=== PATIENT | female | born 1985 | race Caucasian/White ===

== ENCOUNTER 2022-09-21 09:29 | Outpatient (CLI) | payer OTHER, SELFPAY ==
--- NOTE | ~2022-09-21 | US_ITS ---
EXAMINATION: US OB <=14 wk fetus w TV DATE: 09/21/2022 10:24 INDICATION: Establish dating and viability of during first trimester TECHNIQUE: Real-time pelvic ultrasound utilizing both a transvaginal and transabdominal probe was pe rformed. The interpreting radiologist was not present for the study. COMPARISON: None. FINDINGS: The uterus measures 11.2 x 7.1 x 8.2 cm. There is an intrauterine gestational sac. A yolk sac and fe fany pole are identified. The crown rump length measures 2.2 cm, which correlates with an estimated ge stational age of 8 weeks and 6 days. heart motion is identified measuring 168 beats per minute (bpm) by M-mode Doppler. The right ovary measures 3.9 x 2.3 x 3.3 cm. 2.2 cm anechoic likely corpus luteum cyst in the right o vary. The left ovary measures 3.2 x 1.5 x 1.1 cm. There is minimal anechoic free fluid along the righ t ovary. IMPRESSION: 1. Single living fetus with heart rate of 160 bpm. 2. Gestational age by ultrasound of 8 weeks 6 day(s) +/- 6 day(s) with ultrasound estimated date of delivery (LINDA) of 04/27/2023. Reviewed, dictated and finalized at location A. T RELATIONS AGENT IMPRESSION: 1. Single living fetus with heart rate of 160 bpm. 2. Gestational age by ultrasound of 8 weeks 6 day(s) +/- 6 day(s) with ultraso und estimated date of delivery (LINDA) of 04/27/2023.
== END 2022-09-21 09:30 | disposition home or self-care (01) ==
LOC: ANHIMG 09:31
PROVIDERS: PCP Internal Medicine; Visit Provider Student in an Organized Health Care Education/Training Program
DX: Z34.90 Encounter for supervision of normal pregnancy, unspecified, unspecified trimester (principal); Z3A.00 Weeks of gestation of pregnancy not specified
CPT/HCPCS: 76801; 76817

== ENCOUNTER 2023-03-21 08:59 | Outpatient (CLI) | payer OTHER, SELFPAY ==
[2023-03-21 09:31] VITALS: BP 119/61; PULSE 63
[2023-03-21 09:39] LABS: Basophils Percent Auto 0.3 % (0.2-1.2); Eosinophils Absolute Auto 0.1 K/mm3 (0-0.3); Eosinophils Percent Auto 1.1 % (0-4.4); Hematocrit 34.7 % (37.0-47.0); Hemoglobin 11.6 g/dL (12.0-15.0); Immature Granulocyte Absolute 0.06 K/mm3 (0.00-0.031); Immature Granulocyte Percent A 0.6 % (0-0.5); Lymphocytes Absolute Auto 1.35 K/mm3 (0.9-3.2); Lymphocytes Percent Auto 14.3 % (18.3-44.2); Mean Corpuscular HGB Conc 33.4 g/dl (32-36); Mean Corpuscular Hemoglobin 31.8 pg (26-34); Mean Corpuscular Volume 95.1 fl (80-100); Mean Platelet Volume 10.1 fl (7.4-10.4); Monocytes Absolute Auto 0.6 K/mm3 (0.1-0.6); Monocytes Percent Auto 5.8 % (2.6-8.5); Neutrophils Absolute Auto 7.4 K/mm3 (1.3-6.7); Neutrophils Percent Auto 77.9 % (45.5-73.1); Platelet Count Result 196 k/mm3 (150-375); Red Blood Count 3.65 M/mm3 (4.2-5.4); Red Cell Distribution Width 13.5 % (11.5-14.5); White Blood Count 9.5 K/mm3 (4.5-10.0)
[2023-03-21 09:41] LABS: Appearance Urine Clear (Clear); Bilirubin Urine Negative (Negative); Blood Urine Negative (Negative); Color Urine Yellow (Yellow); Glucose Urine UA Negative (Negative); Ketones Urine Negative (Negative); Leukocyte Esterase Ur Negative LEU/UL (NEGATIVE); Nitrate Urine Negative (Negative); Protein Urine Negative (Negative); Specific Grav Ur 1.007 (1.001-1.035); Urobilinogen Urine 0.2 mg/dL (<2.0); pH Urine 7.5 (5.0-9.0)
[2023-03-21 09:43] LABS: Creatinine Urine 45.8 mg/dL; Total Protein Urine Random 11 mg/dL; Ur Ttl Prot Creatinine Ratio 0.24 mg/mg (0-0.20)
[2023-03-21 09:46] VITALS: BP 112/64; PULSE 64
[2023-03-21 09:49] LABS: Alanine Aminotransferase 15 U/L (6-35); Albumin Level 3.8 g/dL (3.5-5.1); Alkaline Phosphatase 85 U/L (38-126); Anion Gap 6 mmol/L (8-16); Aspartate Amino Transferase 18 U/L (14-36); Bilirubin,Total 0.8 mg/dL (0.2-1.3); Blood Urea Nitrogen 6 mg/dL (7-17); Calcium 8.2 mg/dL (8.4-10.2); Carbon Dioxide 23 mmol/L (22-30); Chloride 107 mmol/L (98-107); Estimated Glomerular Filt Rate > 60; Glucose 84 mg/dL (65-110); Potassium 3.6 mmol/L (3.4-5.0); Sodium 136 mmol/L (137-145); Uric Acid 3.6 mg/dL (2.5-7.5)
[2023-03-21 09:58] LABS: Add Urine Microscopic? NO
--- NOTE | 2023-03-21 10:12 | PC.NURSE ---
Dr. Suárez updated on pt labs and vs. tracing reviewed. Order received for 24hour urine outpatient.
[2023-03-21 10:24] VITALS: BP 119/61; PULSE 66
== END 2023-03-21 10:21 | disposition home or self-care (01) ==
LOC: ANHOBOP 09:05 → ANHOBPP 09:05
PROVIDERS: PCP Internal Medicine; Visit Provider Obstetrics & Gynecology
DX: O13.9 Gestational [pregnancy-induced] hypertension without significant proteinuria, unspecified trimester (principal); Z3A.00 Weeks of gestation of pregnancy not specified
CPT/HCPCS: 36415; 59025; 80053; 81003; 82570; 84156; 84550; 85025; 87086; 99199

== ENCOUNTER 2023-03-22 10:46 | Outpatient (NON) | payer OTHER, SELFPAY ==
[2023-03-22 12:21] LABS: Collection Time Urine 24 HOURS
[2023-03-22 12:49] LABS: Specific Gravity Ur 1.012; Total Volume 24 Hour Urine 4000 ml
[2023-03-22 12:52] LABS: Patient Weight 262 Lbs
[2023-03-22 12:55] LABS: Creatinine Clearance Urine 185.3 ml/min (75-125); Creatinine Urine 41.2 mg/dL; Total Protein Urine Random 19 mg/dL
[2023-03-22 13:12] LABS: Total Protein Urine 24 Hr 760 mg/24hr (28-141)
== END 2023-03-22 10:47 | disposition home or self-care (01) ==
LOC: ANHOBOP 10:57
PROVIDERS: PCP Internal Medicine; Visit Provider Obstetrics & Gynecology
DX: Z34.90 Encounter for supervision of normal pregnancy, unspecified, unspecified trimester (principal); Z3A.00 Weeks of gestation of pregnancy not specified
CPT/HCPCS: 81050; 82575; 84156

== ENCOUNTER 2023-03-22 17:00 | Outpatient (CLI) | payer OTHER, SELFPAY ==
[2023-03-22 17:25] VITALS: BP 121/66; PULSE 67
[2023-03-22 17:31] VITALS: BP 109/65; PULSE 66
[2023-03-22 17:46] VITALS: BP 109/66; PULSE 71
[2023-03-22 17:58] VITALS: BP 109/66; PULSE 67
== END 2023-03-22 18:00 | disposition home or self-care (01) ==
LOC: ANHOBOP 17:04 → ANHOBPP 17:06
PROVIDERS: PCP Internal Medicine; Visit Provider Obstetrics & Gynecology
DX: O13.9 Gestational [pregnancy-induced] hypertension without significant proteinuria, unspecified trimester (principal); Z3A.00 Weeks of gestation of pregnancy not specified
CPT/HCPCS: 59025; 87086; 99199

== ENCOUNTER 2023-03-31 13:37 | Outpatient (CLI) | payer OTHER, SELFPAY ==
--- NOTE | ~2023-03-31 | US_ITS ---
EXAMINATION: US OB limited w BPP DATE: 03/31/2023 15:28 CDT INDICATION: Preeclampsia. Evaluate amniotic fluid index. TECHNIQUE: Real-time transabdominal obstetric ultrasound. FINDINGS: Ultrasound dated 09/21/2022 There is a single living fetus in vertex presentation. The placenta is anterior without placenta pre via. cardiac activity and movement is noted with a heart rate of 120 beats per minute. A FI is normal measuring 12.5 cm (normal gestational age is 7.7-24.9 cm). Biophysical profile: breathin of 2 movement: 2 of 2 tone: 2 of 2 Amniotic flud pocket: 2 of 2 Total score: 8 of 8 IMPRESSION: 1. Single living intrauterine in vertex presentation. 2: Total biophysical profile score of 8/8. Reviewed, dictated and finalized at location L.
[2023-03-31 14:09] VITALS: BP 122/68; PULSE 75
[2023-03-31 14:16] VITALS: BP 125/74; PULSE 74
[2023-03-31 14:29] LABS: Basophils Percent Auto 0.2 % (0.2-1.2); Eosinophils Absolute Auto 0.1 K/mm3 (0-0.3); Eosinophils Percent Auto 0.8 % (0-4.4); Hematocrit 33.1 % (37.0-47.0); Hemoglobin 11.3 g/dL (12.0-15.0); Immature Granulocyte Absolute 0.04 K/mm3 (0.00-0.031); Immature Granulocyte Percent A 0.5 % (0-0.5); Lymphocytes Absolute Auto 1.29 K/mm3 (0.9-3.2); Lymphocytes Percent Auto 15.2 % (18.3-44.2); Mean Corpuscular HGB Conc 34.1 g/dl (32-36); Mean Corpuscular Hemoglobin 31.9 pg (26-34); Mean Corpuscular Volume 93.5 fl (80-100); Mean Platelet Volume 10.1 fl (7.4-10.4); Monocytes Absolute Auto 0.4 K/mm3 (0.1-0.6); Monocytes Percent Auto 4.5 % (2.6-8.5); Neutrophils Absolute Auto 6.7 K/mm3 (1.3-6.7); Neutrophils Percent Auto 78.8 % (45.5-73.1); Platelet Count Result 188 k/mm3 (150-375); Red Blood Count 3.54 M/mm3 (4.2-5.4); Red Cell Distribution Width 13.5 % (11.5-14.5); White Blood Count 8.5 K/mm3 (4.5-10.0)
[2023-03-31 14:32] LABS: Appearance Urine Clear (Clear); Bilirubin Urine Negative (Negative); Blood Urine Negative (Negative); Color Urine Yellow (Yellow); Glucose Urine UA Negative (Negative); Ketones Urine 1+ mg/dL (Negative); Leukocyte Esterase Ur Negative LEU/UL (NEGATIVE); Nitrate Urine Negative (Negative); Protein Urine Negative (Negative); Specific Grav Ur 1.014 (1.001-1.035); Urobilinogen Urine 0.2 mg/dL (<2.0)
[2023-03-31 14:38] LABS: Creatinine Urine 94.3 mg/dL; Total Protein Urine Random 13 mg/dL; Ur Ttl Prot Creatinine Ratio 0.14 mg/mg (0-0.20)
[2023-03-31 14:40] LABS: Add Urine Microscopic? NO; Alanine Aminotransferase 19 U/L (6-35); Albumin Level 3.5 g/dL (3.5-5.1); Alkaline Phosphatase 81 U/L (38-126); Anion Gap 7 mmol/L (8-16); Aspartate Amino Transferase 19 U/L (14-36); Bilirubin,Total 0.9 mg/dL (0.2-1.3); Blood Urea Nitrogen 5 mg/dL (7-17); Calcium 8.8 mg/dL (8.4-10.2); Carbon Dioxide 23 mmol/L (22-30); Chloride 107 mmol/L (98-107); Estimated Glomerular Filt Rate > 60; Glucose 145 mg/dL (65-110); Potassium 3.3 mmol/L (3.4-5.0); Sodium 137 mmol/L (137-145); Uric Acid 3.7 mg/dL (2.5-7.5)
[2023-03-31 15:20] VITALS: BP 125/74; PULSE 75
== END 2023-03-31 15:30 | disposition home or self-care (01) ==
LOC: ANHOBOP 13:40 → ANHOBPP 13:41
PROVIDERS: PCP Internal Medicine; Visit Provider Obstetrics & Gynecology
DX: O13.9 Gestational [pregnancy-induced] hypertension without significant proteinuria, unspecified trimester (principal); Z3A.00 Weeks of gestation of pregnancy not specified
CPT/HCPCS: 36415; 59025; 76815; 76819; 80053; 81003; 82570; 84156; 84550; 85025; 87086; 99199

== ENCOUNTER 2023-04-22 13:35 | Outpatient (RCR) | payer OTHER, SELFPAY ==
[2023-04-04 08:09] VITALS: BP 124/79
[2023-04-07 16:26] VITALS: BP 117/79; PULSE 71
[2023-04-11 13:55] VITALS: BP 116/65; PULSE 73
[2023-04-14 17:45] VITALS: BP 122/72; PULSE 75
[2023-04-18 15:01] VITALS: BP 111/79; PULSE 71
--- NOTE | ~2023-04-22 | US_ITS ---
EXAMINATION: US OB limited DATE: 04/14/2023 17:32 INDICATION: Assess amniotic fluid index during third trimester TECHNIQUE: Real-time ultrasound of the pelvis was performed. The interpreting radiologist was not pre sent for the study. COMPARISON: None. FINDINGS: There is a single living fetus in vertex presentation. This obscures the region of the cervix. The pl acenta is anterior. heart rate is 158 beats per minute (bpm). The amniotic fluid index is 11.1 cm, which is normal (5th%-95%: 7.3-23.9 cm at 38 weeks estimated gestational age). IMPRESSION: 1. Single living fetus in vertex presentation with heart rate of 158 bpm. 2. Normal amniotic fluid index of 11.1 cm. Reviewed, dictated and finalized at location A. IMPRESSION: 1. Single living fetus in vertex presentation with heart rate of 158 bpm . 2. Normal amniotic fluid index of 11.1 cm.
--- NOTE | ~2023-04-22 | US_ITS ---
EXAMINATION: US OB limited DATE: 04/18/2023 15:07 INDICATION: Amniotic fluid index assessment, advanced maternal age TECHNIQUE: Real-time ultrasound of the pelvis was performed. The interpreting radiologist was not pre sent for the study. COMPARISON: 04/14/2023 FINDINGS: There is a single living fetus in vertex presentation. The placenta is anterior. card iac activity and movement are noted. heart rate is 120 beats per minute (bpm). The amniot ic fluid index is 8.2 cm which is normal (normal range: 7.3 cm to 23.9 cm). IMPRESSION: 1. Single living fetus in vertex presentation. 2. Normal amniotic fluid index. Reviewed, dictated and finalized at location F.
--- NOTE | ~2023-04-22 | US_ITS ---
EXAMINATION: US OB limited DATE: 04/22/2023 14:46 INDICATION: Advanced maternal age. Third trimester. TECHNIQUE: Real-time ultrasound of the pelvis was performed. COMPARISON: Ultrasound 04/18/2023 FINDINGS: There is a single fetus in vertex presentation. The placenta is anterior. heart rate is 150 be ats per minute (bpm). The amniotic fluid index is 8.3 cm, which is normal. IMPRESSION: 1. Single living fetus in vertex presentation. 2. Normal amniotic fluid index. Reviewed, dictated and finalized at location A.
--- NOTE | ~2023-04-22 | US_ITS ---
US OB limited 04/04/2023 08:33 Indication: Elevated blood pressure. Evaluate RASHID. Procedure: High-resolution obstetrical ultrasound utilizing transabdominal technique Comparison: No prior studies for comparison. Findings: There is a single living intrauterine in vertex presentation. heart rate is 129 BPM. Placenta is anterior without previa. RASHID measures 9 cm (normal range for gestational age is 7.7-24.9 cm). Impression: 1: No living intrauterine in vertex presentation. 2: Normal RASHID measures 9 cm. Reviewed, dictated and finalized at location B. Impression: 1: No living intrauterine in vertex presentation. 2: Normal RASHID measures 9 cm.
--- NOTE | ~2023-04-22 | US_ITS ---
EXAMINATION: US OB limited DATE: 04/07/2023 16:21 INDICATION: Amniotic fluid index. Third trimester. TECHNIQUE: Real-time ultrasound of the pelvis was performed. COMPARISON: Ultrasound 04/04/2023 FINDINGS: There is a single fetus in vertex presentation. The placenta is anterior. heart rate is 154 be ats per minute (bpm). The amniotic fluid index is 9.8 cm, which is normal. IMPRESSION: 1. Single living fetus in vertex presentation. 2. Normal amniotic fluid index. Reviewed, dictated and finalized at location E.
[2023-04-22 13:52] VITALS: BP 121/67; PULSE 80
== END 2023-06-27 13:09 | disposition home or self-care (01) ==
LOC: ANHOBOP 13:35
PROVIDERS: PCP Internal Medicine; Visit Provider Obstetrics & Gynecology
DX: O09.513 Supervision of elderly primigravida, third trimester (principal); O26.893 Other specified pregnancy related conditions, third trimester; R03.0 Elevated blood-pressure reading, without diagnosis of hypertension; Z3A.36 36 weeks gestation of pregnancy
CPT/HCPCS: 59025; 76815

== ENCOUNTER 2023-04-25 16:10 | Inpatient (IN) | payer OTHER, SELFPAY ==
[2023-04-25] VITALS (17 sets, daily range): BP systolic 111–142; BP diastolic 61–88; PULSE 68–83; TEMP 36.8; BMI 49.1
[2023-04-25 16:58] LABS: Basophils Percent Auto 0.3 % (0.2-1.2); Eosinophils Absolute Auto 0.1 K/mm3 (0-0.3); Eosinophils Percent Auto 0.8 % (0-4.4); Hematocrit 33.2 % (37.0-47.0); Hemoglobin 11.4 g/dL (12.0-15.0); Immature Granulocyte Absolute 0.04 K/mm3 (0.00-0.031); Immature Granulocyte Percent A 0.4 % (0-0.5); Lymphocytes Absolute Auto 1.22 K/mm3 (0.9-3.2); Lymphocytes Percent Auto 13.4 % (18.3-44.2); Mean Corpuscular HGB Conc 34.3 g/dl (32-36); Mean Corpuscular Hemoglobin 31.7 pg (26-34); Mean Corpuscular Volume 92.2 fl (80-100); Mean Platelet Volume 10.4 fl (7.4-10.4); Monocytes Absolute Auto 0.5 K/mm3 (0.1-0.6); Monocytes Percent Auto 4.9 % (2.6-8.5); Neutrophils Absolute Auto 7.3 K/mm3 (1.3-6.7); Neutrophils Percent Auto 80.2 % (45.5-73.1); Platelet Count Result 191 k/mm3 (150-375); White Blood Count 9.1 K/mm3 (4.5-10.0)
--- NOTE | 2023-04-25 17:13 | LDADM ---
This patient, Sarita Arambula, was admitted to Labor/Delivery/Recovery 104 on 04/25/23 at 16:10. Plans for labor, pain management and were discussed with patient. Patient/family oriented to hospital policies and general routines including ID bracelet, bed and alarms, visiting hours, pain management, procedures, bathroom and other care routines, personal items, smoking policy, room service/diet and guest tray routines, infant security routines, and visiting hours. Patient/Family are encouraged to report perceived risks to care and to ask questions if they do not understand what they are told or what they should do. See OBIX for further documentation.
[2023-04-25] MEDS: DINOPROSTONE 10 MG VAG INSERT VAGINAL (17:33)
--- NOTE | 2023-04-25 17:43 | WPDANESEPP ---
Anes - Eval Pre Procedure Procedure: Labor epidural Date/Time: 04/25/23 17:43 Surgeon: Jose Armando Preop Diagnosis: Abdominal pain with contractions Pre Op Diagnosis: IOL Patient Data Age: 37 Gender: F Height: 1.57 m Weight: 122 kg Last Vital Signs O2 Del Method Room Air 04/25/23 17:12 Allergies Allergy/AdvReac Type Severity Reaction Status Date / Time Cephalosporins Allergy Intermediate RASH Verified 04/18/23 13:07 Penicillins Allergy Intermediate RASH Verified 04/18/23 13:07 adhesive tape AdvReac Redness of Verified 04/18/23 13:07 Skin Home Medications Medication Instructions Recorded Confirmed Type cholecalciferol (vitamin D3) 125 125 mcg PO DAILY 10/07/20 04/12/23 History mcg (5,000 unit) capsule levothyroxine 50 mcg tablet 75 mcg PO DAILY 10/07/20 04/12/23 History vitamin B complex (B 1 tablet PO DAILY 08/20/21 04/12/23 History Complex-Vitamin B12 tablet) prenat.vits,miriam,rnz-lvll-wuwdi 1 tablet PO DAILY 09/14/22 04/12/23 History docusate sodium 100 mg capsule 100 mg PO DAILY 10/12/22 04/12/23 History (Colace) miscellaneous medical supply #1 ea 03/21/23 04/12/23 Rx (Blood Pressure Cuff) Laboratory Tests 04/25/23 16:48 WBC 9.1 K/mm3 (4.5-10.0) RBC 3.60 L M/mm3 (4.2-5.4) Hgb 11.4 L g/dL (12.0-15.0) Hct 33.2 L % (37.0-47.0) MCV 92.2 fl (80-100) MCH 31.7 pg (26-34) MCHC 34.3 g/dl (32-36) RDW 13.0 % (11.5-14.5) Plt Count 191 k/mm3 (150-375) MPV 10.4 fl (7.4-10.4) Immature Gran % (Auto) 0.4 % (0-0.5) Neut % (Auto) 80.2 H % (45.5-73.1) Lymph % (Auto) 13.4 L % (18.3-44.2) [place] % (Auto) 4.9 % (2.6-8.5) Eos % (Auto) 0.8 % (0-4.4) Baso % (Auto) 0.3 % (0.2-1.2) Lymph # (Auto) 1.22 K/mm3 (0.9-3.2) [place] # (Auto) 0.5 K/mm3 (0.1-0.6) Eos # (Auto) 0.1 K/mm3 (0-0.3) Baso # (Auto) 0.0 K/mm3 (0.0-0.1) Abs Immat Gran (auto) 0.04 H K/mm3 (0.00-0.031) Absolute Neuts (auto) 7.3 H K/mm3 (1.3-6.7) Absolute Nucleated RBC 0.0 K/mm3 (0.0-0.012) Nucleated RBC % 0.0 % (0.0-0.2) RPR Pending : gestational age HCG: positive Patient hx anesthesia problems: none Family hx anesthesia problems: none Results Review: All pre-operative results and documents have been reviewed as part of the pre-operative evaluation. [facility] Past Medical History Medical History Acid reflux Bipolar disorder History of miscarriage x 1 Hypothyroidism Migraine Morbid obesity and not yet delivered Surgical History Surgical History History of tonsillectomy and adenoidectomy Family History Family History Father Diabetes mellitus Acute myocardial infarction Hypertension Hyperlipidemia Mother Uterine prolapse Social History Social History Smoking status: Never smoker Second hand tobacco smoke exposure: No Alcohol intake: current Substance use: never Lack of Transportation: No Lack of Food: Never True Current Housing: I Have Housing Concerned About Future Housing: No Difficulty Paying Gas/Electric Bills: No Difficulty Paying for Meds: No Currently Unemployed: No Education: Master's Degree or Higher Difficulty w/ Childcare or Family Care: No Spiritual care concerns: No Exam Day of Procedure 04/25/23 17:43 Patient weight: morbidly obese Airway: Mallampati scale class III
[2023-04-26] VITALS (78 sets, daily range): BP systolic 78–151; BP diastolic 39–106; PULSE 63–135; RESP 16; TEMP 36.4–36.8; O2SAT 97–100
[2023-04-26] MEDS: miSOPROStol 25 MCG TABLET PO (05:49)
[2023-04-26 06:43] LABS: Rapid Plasma Reagin Non-Reactive (NonReactive)
[2023-04-26] MEDS: OXYTOCIN 30 UNITS/NS 500 ML 30 UNITS/500 ML BAG IV CONT (09:52)
[2023-04-26] MEDS: LACTATED RINGERS 1,000 ML 125 ML IV CONT ×3 (09:53→22:06)
--- NOTE | 2023-04-26 22:07 | PM.IMHP ---
H&P: HPI History of Present Illness Date/Time: 04/26/23 22:07 Chief Complaint: Medical induction of labor Narrative: Sheis a 37 y/o at 39 5/7 by edc of 04/27/23 established by 8 week ultrasound. She was admitted for MIL. 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 No elevated blood pressures. She has been getting surveillance testing which has been reassuring. EFW has been within normal range. Review of Systems Review of Systems: All systems reviewed & are unremarkable except as noted in HPI and below Constitutional: Constitutional: Reports no additional constitutional complaints and Denies headache(s) Eyes: Eyes: Denies spots in vision ENT: Reports system reviewed and no additional complaints, except as documented and Denies headache(s) Cardiovascular: Cardiovascular: Denies chest pain and Denies dyspnea Respiratory: Respiratory: Denies dyspnea Gastrointestinal: Gastrointestinal: Reports no additional gastrointestinal complaints Genitourinary: Genitourinary: Reports amenorrhea Musculoskeletal: Musculoskeletal: Reports no additional musculoskeletal complaints Integumentary/Breasts: Skin/Breast: Denies breast mass and Denies rash Neurologic: Denies headache(s) Psychiatric: Psychiatric: Reports no additional psychiatric complaints PMFSH Past Medical History Medical History Acid reflux Bipolar disorder History of miscarriage x 1 Hypothyroidism Migraine Morbid obesity and not yet delivered Surgical History Surgical History History of tonsillectomy and adenoidectomy Family History Family History Father Diabetes mellitus Acute myocardial infarction Hypertension Hyperlipidemia Mother Uterine prolapse Social History Social History Smoking status: Never smoker Second hand tobacco smoke exposure: No Alcohol intake: current Substance use: never Lack of Transportation: No Lack of Food: Never True Current Housing: I Have Housing Concerned About Future Housing: No Difficulty Paying Gas/Electric Bills: No Difficulty Paying for Meds: No Currently Unemployed: No Education: Master's Degree or Higher Difficulty w/ Childcare or Family Care: No Spiritual care concerns: No Meds Home Medications and Allergies Home Medications Medication Instructions Recorded Confirmed Type cholecalciferol (vitamin D3) 125 125 mcg PO DAILY 10/07/20 04/26/23 History mcg (5,000 unit) capsule levothyroxine 50 mcg tablet 75 mcg PO DAILY 10/07/20 04/26/23 History vitamin B complex (B 1 tablet PO DAILY 08/20/21 04/26/23 History Complex-Vitamin B12 tablet) prenat.vits,miriam,hon-nddp-[id number] 1 tablet PO DAILY 09/14/22 04/26/23 History docusate sodium 100 mg capsule 100 mg PO DAILY 10/12/22 04/26/23 History (Colace) Allergies Allergy/AdvReac Type Severity Reaction Status Date / Time Cephalosporins Allergy Intermediate RASH Verified 04/18/23 13:07 Penicillins Allergy Intermediate RASH Verified 04/18/23 13:07 adhesive tape AdvReac Redness of Verified 04/18/23 13:07 Skin Vital Signs Vital Signs - 24 hr 04/25/23 23:01 04/25/23 23:31 04/26/23 00:01 Temperature Pulse Rate 75 73 67 Blood Pressure 118/64 111/61 145/79 H Pulse Oximetry 04/26/23 00:31 04/26/23 00:00 04/26/23 01:01 Temperature 97.9 F Pulse Rate 65 70 Blood Pressure 134/75 135/75 Pulse Oximetry 04/26/23 01:31 04/26/23 02:01 04/26/23 02:31 Temperature Pulse Rate 70 63 69 Blood Pressure 119/82 134/81 136/80 Pulse Oximetry 04/26/23 03:01 04/26/23 03:31 04/26/23 04:01 Temperature Pulse Rate 81 63 68 Blood Pressure 129/87 133/79 133/83
--- NOTE | 2023-04-26 22:22 | PM.OBPNVD ---
OB - PN: Subj Subjective Date/time seen: 04/26/23 22:22 Interval history: Cat 1, 115, cervix 2/50/-3, AROM, no fluid obtained, continue Pitocin. OB - PN: Obj Data Labs 04/25/23 16:48 Labs: Laboratory Results - last 24 hr 04/25/23 16:48 RPR Non-reactive OB - PN A/P Time Spent With Patient Time: Total time spent is greater than 50% in coordination of care (as documented) at patient's floor/unit and/or counseling patient:
--- NOTE | 2023-04-26 22:24 | PM.OBPNVD ---
OB - PN: Subj Subjective Date/time seen: 04/26/23 0845 Interval history: Cat 1, 115, cervix 2/50/-3, AROM 0840 no fluid obtained, continue Pitocin. OB - PN: Obj Data Labs 04/25/23 16:48 Labs: Laboratory Results - last 24 hr 04/25/23 16:48 RPR Non-reactive OB - PN A/P Time Spent With Patient Time: Total time spent is greater than 50% in coordination of care (as documented) at patient's floor/unit and/or counseling patient:
--- NOTE | 2023-04-26 22:25 | PM.OBPNVD ---
OB - PN: Subj Subjective Date/time seen: 04/26/23 1330. Interval history: Cat 1, 135, no leaking prior to exam, cervix 3/60/-3, attempted AROM 1330, and clear fluid noted, wilil use that as rupture of membranes time. Continue Pitocin. OB - PN: Obj Data Labs 04/25/23 16:48 Labs: Laboratory Results - last 24 hr 04/25/23 16:48 RPR Non-reactive OB - PN A/P Time Spent With Patient Time: Total time spent is greater than 50% in coordination of care (as documented) at patient's floor/unit and/or counseling patient:
--- NOTE | 2023-04-26 22:29 | PM.OBPNVD ---
OB - PN: Subj Subjective Date/time seen: 04/26/23 22:29 Interval history: Cat 1, 130, cervix 360/-3, continue pitocin. She is considering epidural. OB - PN: Obj Data Labs 04/25/23 16:48 Labs: Laboratory Results - last 24 hr 04/25/23 16:48 RPR Non-reactive OB - PN A/P Time Spent With Patient Time: Total time spent is greater than 50% in coordination of care (as documented) at patient's floor/unit and/or counseling patient:
[2023-04-27] VITALS (58 sets, daily range): BP systolic 103–143; BP diastolic 63–102; PULSE 78–139; RESP 20; TEMP 37.1–37.6; O2SAT 99–100
[2023-04-27] MEDS: IBUPROFEN 600 MG TABLET PO (19:25)
--- NOTE | 2023-04-27 21:00 | PC.NURSE ---
Patient viewed the discharge video Mother & Baby Care, The First Two Weeks . Patient was given the opportunity and encouraged to ask questions. Patient verbalized understanding of information shared and has been given the mother/baby guide for home reference.
[2023-04-27] MEDS: ACETAMINOPHEN 325 MG TABLET 650 MG PO (22:58)
[2023-04-28] MEDS: IBUPROFEN 600 MG TABLET PO ×3 (01:40→17:53)
[2023-04-28 04:35] VITALS: BP 108/65; PULSE 76; RESP 18; TEMP 36.6
[2023-04-28] MEDS: ACETAMINOPHEN 325 MG TABLET 650 MG PO ×3 (04:37→22:12)
[2023-04-28 05:31] LABS: Hematocrit 30.1 % (37.0-47.0); Hemoglobin 10.2 g/dL (12.0-15.0)
--- NOTE | 2023-04-28 06:40 | OP_ITS ---
DATE OF PROCEDURE: 04/27/2023 TYPE OF DELIVERY: Spontaneous vaginal delivery. DESCRIPTION OF PROCEDURE: The patient is a G2, P0, was admitted for medical induction of labor at 39 and 5/7th weeks. course significant for hypothyroidism, advanced maternal age. BMI greater than 40. She was admitted on the and had Cervidil in the evening. The morning of April 26, she had assisted rupture of membranes, but no fluid leakage, and then at 1 p.m. later, the bag was palpated, and she did not have any leaking of fluid prior to that, and the assisted rupture of membranes was attempted then, and clear fluid was noted, so that would be the time of rupture, at approximately 1330 hours. She continued on Pitocin. She had slow progress to active labor. The morning of April 27, she was 8 cm, and the position was 0 station. She was continued on Pitocin. At 18 hours after rupture, she was started on vancomycin due to the 18 prolonged rupture of membranes. The highest temperature she had during labor was 100.2. This did go down. She dilated to complete and pushed for approximately an hour and a half, and delivered a female at 11:02 on April 27, Apgars 6 and 9. There was a tight nuchal cord at the time of delivery, which was surgically reduced. She had modified Dawn leg position, and the anterior shoulder was then delivered, and the rest of the infant was delivered. Infant was crying and placed on maternal abdomen. The cord blood and cord gases were obtained. The placenta delivered spontaneously and intact. She sustained a second-degree midline laceration, repaired with 3-0 Vicryl. EBL, 200 mL. The weight of the female infant was 7 pounds 4 ounces. D I MT: Eliza
[2023-04-28] MEDS: LEVOTHYROXINE SODIUM 75 MCG TABLET PO (06:47)
--- NOTE | 2023-04-28 07:42 | PM.OBPNVD ---
OB - PN: Subj Subjective Date/time seen: 04/28/23 07:42 Interval history: Cat 1, 130, cervix 3/60/-3, continue pitocin. She is considering epidural. Patient comments: no complaints, pain well controlled and tolerating diet feeding status: exclusively breast feeding Narrative: patient doing well this AM. No complaints. Pain is well controlled. She reports minimal bleeding. She is ambulating and voiding without difficulty. She is tolerating PO. She denies N/V, fever, chills. OB - PN: Obj Data Labs 04/28/23 04:36 Labs: Laboratory Results - last 24 hr 04/28/23 04:36 Hgb 10.2 L Hct 30.1 L OB - PN A/P Plan day: 1 Plan: routine care Comments: patient doing well H/H 10. VSS reports minimal bleeding continue routine care Time Spent With Patient Time: Total time spent is greater than 50% in coordination of care (as documented) at patient's floor/unit and/or counseling patient: Time with patient: less than 15 minutes Review of Systems Review of Systems: All systems reviewed & are unremarkable except as noted in HPI and below Exam Const: General: comfortable and no acute distress Resp: Effort & Inspection: normal respiratory effort Cardio: Rate: regular rate GI: GI Palp: Yes Soft to palpation and No Tenderness to palpation present (GI) Auscultation: normal bowel sounds Other: fundus firm and below umbilicus. Psych: Affect: normal affect
[2023-04-28 08:00] VITALS: BP 126/76; PULSE 84; RESP 16; TEMP 36.4; O2SAT 99
[2023-04-28] MEDS: MULTIVIT/MIN/PREN/FOL AC/IRON TABLET 1 TAB PO (09:44)
--- NOTE | 2023-04-28 12:18 | PC.NURSE ---
Paper documentation exists on this patient due to [facility] downtime on 04/27/23 from [id number].
--- NOTE | 2023-04-28 13:33 | WPDANLDPN2 ---
Anes-Prog Note L&D Date/Time: 04/28/23 13:33 Neuro status: Neuro function grossly intact. Vital Signs: Last Vital Signs Temp 36.4 C 04/28/23 08:00 Pulse 84 04/28/23 08:00 Resp 16 04/28/23 08:00 BP 126/76 04/28/23 08:00 Pulse Ox 99 04/28/23 08:00 O2 Del Method Room Air 04/25/23 17:12 Pain score (VAS): 0 I/O: Intake & Output 04/27/23 04/28/23 04/28/23 23:59 07:59 15:59 Intake Total 240 Balance 240 Patient feedback: Patient satisfied with anesthetic care.
--- NOTE | 2023-04-28 13:48 | PC.NURSE ---
[id number] Purposefully rounded to assess needs. Mother is in the shower and father of baby will call after mother is comfortable, [id number] with her infant since feeding cues are present at this time. [id number] Parents requested assistance with latching their . Mother states that there was an attempt independently to latch infant earlier and infant would open wide to latch, then hold the breast into her mouth not understanding what to do. Infant is [id number] with mother and feeding cues were visualized after stimulating infant for wakefulness. There is an attempt with a big open mouth, however; is not able to effectively breastfeed and slides off of the breast. Mother has edema in her areola, however; it is better today. meets the outcomes for weight, output and jaundice at this time, however the TCB is 8.6 @21 hours and has not voided in life. is unable to effectively latch or maintain, so we discussed the different feeding options and there is no medical reason to supplement at this time. Time was spent with efforts to latch with the nipple shield and it was unsuccessful. Mother desires to pump and see if she can supplement with breast milk. [id number] Breast pump provided due to ineffective at this time. Instructions given on cleaning, care, usage, that there should be no pain, pumping schedule for milk production, collection, and storage of human milk. Parents are encouraged to record pumping schedule on the feeding sheet. Patient was assessed for correct placement, flange size, to pump for comfort and nipple stretching/stimulation for adequate milk production every 3 hours (8 times in 24 hours) 1-2 times at night. Mother voiced understanding of the education shared along with mom and baby guide for additional resource information. After the pumping session was spoon fed the almost 1/4 tsp of colostrum. Parents were given education to make an inform decision and they are choosing to supplement with formula at this time. Demonstrated paced bottle feeding with parents and 10mls was given to infant. Parents voiced understanding of the practicing of , when to call for assistance if there's pain with a latch or infant will not wake to breastfeed. Pumping and/or hand express to protect the milk supply. Feeding the the expressed breast milk, then supplementing with formula using paced bottle feeding. Primary RN is updated with progress.
--- NOTE | 2023-04-28 22:00 | PC.NURSE ---
Patient instructed to view the discharge video Mother & Baby Care, The First Two Weeks online. Patient was given the opportunity and encouraged to ask questions. Patient verbalized understanding of information shared and has been given the mother/baby guide for home reference.
[2023-04-28 22:10] VITALS: BP 133/81; PULSE 89; RESP 20; TEMP 36.7
[2023-04-28] MEDS: WITCH HAZEL 40 PADS 1 PAD TOPICAL (22:13)
[2023-04-29] MEDS: IBUPROFEN 600 MG TABLET PO (05:20)
[2023-04-29] MEDS: LEVOTHYROXINE SODIUM 75 MCG TABLET PO (06:51)
[2023-04-29 08:40] VITALS: BP 113/86; PULSE 76; RESP 16; TEMP 37.1; O2SAT 99
[2023-04-29] MEDS: MULTIVIT/MIN/PREN/FOL AC/IRON TABLET 1 TAB PO (09:13)
[2023-04-29] MEDS: ACETAMINOPHEN 325 MG TABLET 650 MG PO (09:13)
--- NOTE | 2023-04-29 10:05 | PM.OBDSVD ---
DS: Admitting Diagnosis Discharge Date 04/29/23 Admitting Diagnosis intrauterine at term maternal hypothyroidism OB - DS: Summary OB Procedures : None OB Procedures Intrapartum: Spontaneous Vag Delivery OB Procedures: : None Status at Discharge Functional status at discharge: independent ambulation Overall status at discharge: patient is back to baseline Time Spent with Patient Time attestation: Total time spent providing and/or coordinating discharge services: Time spent: Less than 30 minutes Exam Const: General: comfortable and no acute distress Resp: Effort & Inspection: normal respiratory effort Auscultation: clear to auscultation bilaterally Cardio: Rate: regular rate GI: GI Palp: Yes Soft to palpation Auscultation: normal bowel sounds Other: Fundus firm below umbilicus Psych: Appearance: grossly normal Mental Status: mental status grossly normal Affect: normal affect Discharge Plan Discharge Attending physician on discharge: Jay Jay Suárez Discharging Clinician: Pa Cowart Patient Disposition: Home, Self-Care Activity: as tolerated and pelvic rest Diet: regular Patient Instructions: Antibiotic Form, Vaginal Delivery (DC) Stand Alone Forms: General Discharge Information Follow-up/Referrals: Jay Jay Suárez MD [Physician] - Discharge Medications: New acetaminophen 500 mg tablet 500 mg PO Q6H PRN (Reason: pain) Qty: 30 0RF ibuprofen 600 mg tablet 600 mg PO Q6H PRN (Reason: pain) Qty: 30 0RF Continued levothyroxine 50 mcg tablet 75 mcg PO DAILY cholecalciferol (vitamin D3) 125 mcg (5,000 unit) capsule 125 mcg PO DAILY docusate sodium [Colace] 100 mg capsule 100 mg PO DAILY vitamin B complex [B Complex-Vitamin B12] Tablet 1 tablet PO DAILY prenat.vits,miriam,jjd-jaqm-esady Tablet 1 tablet PO DAILY Date of admission: 04/27/23 13:50 Primary Care Provider: Marco Walls Admitting Provider: Jay Jay Suárez Attending physician on admission: Jay Jay Suárez Condition: Stable
--- NOTE | 2023-04-29 12:19 | PC.NURSE ---
Addendum entered by Ngozi Moreland RN 04/29/23 12:26: Reviewed protecting the milk supply, expectations as it pertains to hypothyroidism and pumping at least 8 times in a 24 hour period with 1-2 times at night. Parents voiced understanding of education. Original Note: [id number] Purposefully rounded to assess needs. Parents will call for assistance when they are ready for a consult. [phone] Consulted with patient to assess needs related to . Reviewed working with infant, supporting breast and how to protect the nipples with an optimal deep latch, good positioning, and good hand washing. Mother demonstrates understanding of education for [id number], stimulating for wakefulness, positioning, alignment, supporting breast, and bringing to the breast. opens with big, open, wide gape, however; infant has difficulty latching effectively to nurse related to tongue sucking, shallow latching, and edema in mothers areola. The edema has decreased some but the nipples need more protractility. Nipple care reviewed with optimal latch, good positioning and using clean hands when feeding her infant and touching her breast. Mother plans to continue with attempting to breastfeed, pumping to stimulate the milk supply, and supplement to feed . Reminded parents to use good handwashing technique to prevent infection. Mother is feeding appropriately for growth of and understands stimulating infant to eat if needed. has had appropriate feedings in the last 24 hours meets the outcomes for weight, output and jaundice at this time. Mother states she is confident to continue to feed her at home, when to call for assistance and denies any additional assistance or education at this time. Reinforced understanding of milk production, transition of milk, signs of adequate intake, transition of stool, prevention/relief of engorgement, responsive watching for feeding cues, the different methods of stimulating to breastfeed 2-3 hours after the start of the last feeding, community resources, medication information reviewed per [employer] and when to call a provider using the resource of the mom and baby guide/[facility] website. Parents voiced understanding of the education shared.
[2023-04-30 08:38] VITALS: BP 132/89; PULSE 60; RESP 20; TEMP 36.9; O2SAT 100
== END 2023-04-29 13:10 | disposition home or self-care (01) | DRG 807 ==
LOC: ANHLDR 04-26 09:43 → ANHOB2 04-29 10:06 → ANHLDR 05-02 15:29 → ANHOB2 05-02 15:29
PROVIDERS: Admitting Provider Obstetrics & Gynecology; PCP Internal Medicine; Visit Provider Student in an Organized Health Care Education/Training Program
DX: O75.2 Pyrexia during labor, not elsewhere classified (principal); Z37.0 Single live birth; O99.284 Endocrine, nutritional and metabolic diseases complicating childbirth; O70.1 Second degree perineal laceration during delivery; O12.14 Gestational proteinuria, complicating childbirth; O99.214 Obesity complicating childbirth; E66.01 Morbid (severe) obesity due to excess calories; O69.1XX0 Labor and delivery complicated by cord around neck, with compression, not applicable or unspecified; Z3A.39 39 weeks gestation of pregnancy; O99.62 Diseases of the digestive system complicating childbirth; K21.9 Gastro-esophageal reflux disease without esophagitis; O42.92 Full-term premature rupture of membranes, unspecified as to length of time between rupture and onset of labor; Z14.1 Cystic fibrosis carrier; Z88.0 Allergy status to penicillin
CPT/HCPCS: 36415; 85014; 85018; 85025; 86592; 86850; 86900; 86901; 88307; A9270; J2590; J2795; J7120

== ENCOUNTER 2023-10-03 10:58 | Outpatient (CLI) | payer OTHER, SELFPAY ==
--- NOTE | ~2023-10-03 | XR_ITS ---
EXAMINATION: XR wrist LT min 3V DATE: 10/03/2023 11:14 INDICATION: Left wrist pain. TECHNIQUE: 4 views of left wrist were obtained. COMPARISON: None. FINDINGS: Bone alignment is normal. No fracture. Joint spaces are normal. IMPRESSION: 1. Normal left wrist. Reviewed, dictated and finalized at location E. LAY CARD WRITER IMPRESSION: 1. Normal left wrist.
== END 2023-10-03 10:59 | disposition home or self-care (01) ==
LOC: CHSIMG 10:59
PROVIDERS: PCP Internal Medicine; Visit Provider Internal Medicine
DX: M25.532 Pain in left wrist (principal)
CPT/HCPCS: 73110

== ENCOUNTER 2024-07-12 16:29 | Emergency (ER) | payer BC, SELFPAY ==
[2024-07-12 16:45] VITALS: BP 111/80; PULSE 70; RESP 16; TEMP 36.4; O2SAT 100
--- NOTE | 2024-07-12 16:49 | ED.URI ---
HPI - URI/Sore Throat General Chief Complaint: Upper Respiratory Infection Stated Complaint: COUGH Time Seen by Provider: 07/12/24 16:49 Source: patient Mode of arrival: ambulatory Limitations: no limitations History of Present Illness HPI Narrative: 39 yo F presents with c/o productive cough for 3 wks. Worse at night. Taking OTC meds to treat symptoms. Today while at gym felt SOB, cannot take deep breath. No SOB or CP at this time. Afebrile. All systems reviewed and negative except as noted above. Related Data Home Medications Medication Instructions Recorded Confirmed cholecalciferol (vitamin D3) 125 125 mcg PO DAILY 10/07/20 07/12/24 mcg (5,000 unit) capsule levothyroxine 50 mcg tablet 75 mcg PO DAILY 10/07/20 07/12/24 vitamin B complex (B 1 tablet PO DAILY 08/20/21 07/12/24 Complex-Vitamin B12 tablet) Allergies Allergy/AdvReac Type Severity Reaction Status Date / Time Cephalosporins Allergy Intermediate RASH Verified 07/12/24 16:52 Penicillins Allergy Intermediate RASH Verified 07/12/24 16:52 adhesive tape AdvReac Redness of Verified 07/12/24 16:52 Skin Review of Systems Review of Systems: CONSTITUTIONAL: Denies fever, chills, or sweats. EYES: Denies visual changes, redness, or discharge. ENT: Denies rhinorrhea, congestion, sore throat, or otalgia. CARDIOVASCULAR: Denies chest pain, palpitations, or edema. RESPIRATORY: reports cough and dyspnea with exertion. GASTROINTESTINAL: Denies abdominal pain, nausea, vomiting, or diarrhea. GENITOURINARY: Denies dysuria or hematuria. SKIN: Denies rash or itching. MUSCULOSKELETAL: Denies back pain, joint pain, or myalgia. NEUROLOGIC: Denies headache, numbness, or weakness. PSYCHIATRIC: Denies anxiety or depression. All other systems reviewed are negative, except as documented in HPI. [facility] Past Medical History Medical History Acid reflux Bipolar disorder History of miscarriage x 1 Hypothyroidism Migraine Morbid obesity and not yet delivered Surgical History Surgical History History of tonsillectomy and adenoidectomy Family History Family History Father Diabetes mellitus Acute myocardial infarction Hypertension Hyperlipidemia Mother Uterine prolapse Social History Social History Smoking status: Never smoker Second hand tobacco smoke exposure: No Alcohol intake: current Substance use: never Lack of Transportation: No Lack of Food: Never True Current Housing: I Have Housing Concerned About Future Housing: No Difficulty Paying Gas/Electric Bills: No Difficulty Paying for Meds: No Currently Unemployed: No Education: Master's Degree or Higher Difficulty w/ Childcare or Family Care: No Spiritual care concerns: No Comments At time of signature, agree with nursing past medical, surgical, social and family history. There is no relevant family history pertinent to the presenting complaint. Exam Narrative: GENERAL: This is a well-nourished, well-developed patient, in no apparent distress. HEAD: normocephalic, atraumatic. EYES: PERRL. Sclera clear/white. Vision is grossly intact. EARS: External ears normal, auditory canals clear and without drainage, TMs normal without perforation. Hearing grossly intact. NOSE: External nose normal with no obvious nasal discharge, nares without redness, no rhinorrhea. THROAT: Mucous membranes moist, clear postnasal drainage NECK: Neck supple, non-tender without lymphadenopathy, masses or thyromegaly. CARDIOVASCULAR: Regular rate and rhythm without murmurs, gallops, or rubs. RESPIRATORY: Clear to auscultation. Breath sounds equal bilaterally. No wheezes, rales, or rhonchi. SKIN: warm, Dry, intact with no suspicious lesions or rash, good texture and turgor. NE
== END 2024-07-12 17:05 | disposition home or self-care (01) ==
PROVIDERS: Emergency Provider Nurse Practitioner Family; PCP Internal Medicine
DX: J20.9 Acute bronchitis, unspecified (principal); K21.9 Gastro-esophageal reflux disease without esophagitis; E03.9 Hypothyroidism, unspecified; E66.01 Morbid (severe) obesity due to excess calories; Z68.41 Body mass index [BMI] 40.0-44.9, adult
CPT/HCPCS: 99213; G0463

== ENCOUNTER 2025-01-17 15:20 | Outpatient (CLI) | payer OTHER, SELFPAY ==
--- NOTE | ~2025-01-17 | US_ITS ---
EXAMINATION: US OB <=14 wk fetus w TV DATE: 01/17/2025 15:47 INDICATION: Encounter for supervision of normal during first trimester TECHNIQUE: Real-time pelvic ultrasound utilizing both a transvaginal and transabdominal probe was pe rformed. The interpreting radiologist was not present for the study. COMPARISON: None. FINDINGS: The uterus measures 9.2 x 6.9 x 6.7 cm. There is an intrauterine gestational sac. A yolk sac and fet al pole are identified. The crown rump length measures 2.7 cm, which correlates with an estimated ges tational age of 9 weeks and 4 days. heart motion is identified measuring 178 beats per minute ( bpm) by M-mode Doppler. The right ovary measures 3.3 x 2.2 x 2.2 cm. Vascular flow identified at the right ovary on color Dop pler. The left ovary is not visualized. There is no free fluid in the pelvis. IMPRESSION: 1. Single living fetus with heart rate of 178 bpm. 2. Gestational age by ultrasound of 9 weeks 4 day(s) +/- 6 day(s) with ultrasound estimated date of delivery (LINDA) of 08/18/2025. Reviewed, dictated and finalized at location L. ICE ADMITTING CLERK IMPRESSION: 1. Single living fetus with heart rate of 178 bpm. 2. Gestational age by ultrasound of 9 weeks 4 day(s) +/- 6 day(s) with ultraso und estimated date of delivery (LINDA) of 08/18/2025.
== END 2025-01-17 15:21 | disposition home or self-care (01) ==
LOC: GOSHIMG 15:20
PROVIDERS: PCP Student in an Organized Health Care Education/Training Program; Visit Provider Student in an Organized Health Care Education/Training Program
DX: Z34.91 Encounter for supervision of normal pregnancy, unspecified, first trimester (principal); Z3A.09 9 weeks gestation of pregnancy
CPT/HCPCS: 76801; 76817

== ENCOUNTER 2025-05-18 08:22 | Outpatient (CLI) | payer OTHER, SELFPAY ==
--- NOTE | ~2025-05-18 | US_ITS ---
Limited Abdominal Sonogram: Real-time sonographic imaging of the right upper quadrant was performed. Clinical History: Right upper quadrant pain Findings: The liver appears normal with no evidence of mass lesion or bile duct dilatation. Main por fany vein demonstrates normal direction of flow. The gallbladder is well distended, and appears normal with no evidence of gallstone or wall thickening. The common bile duct measures 4 mm. The visualize d pancreas, aorta, and IVC are unremarkable. Impression: No significant abnormality seen. Reviewed, dictated and finalized at location M. Impression: No significant abnormality seen.
== END 2025-05-18 08:23 | disposition home or self-care (01) ==
LOC: MICIMG 08:23
PROVIDERS: PCP Obstetrics & Gynecology; Visit Provider Obstetrics & Gynecology
DX: R10.11 Right upper quadrant pain (principal)
CPT/HCPCS: 76705

== ENCOUNTER 2025-08-16 19:38 | Inpatient (IN) | payer OTHER, SELFPAY ==
[2025-08-16] VITALS (11 sets, daily range): BP systolic 131–139; BP diastolic 72–88; PULSE 70–88; TEMP 36.6; BMI 50.2
--- OUTSIDE RECORDS SUMMARY | 2025-08-16 19:44 | XMS_ITS | Clinical Summary ---
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
--- OUTSIDE RECORDS SUMMARY | 2025-08-16 19:44 | XMS_ITS | Clinical Summary ---
Author Organization [facility] Address [address] [place] [address] Care Team Providers Care Auto Servicer Name Role Phone Unavailable Primary Care Provider Unavailabl e Source Comments [facility],non-owned Affiliates and Associated Physician Practices is amultiple site organization consisting of ambulatory clinics and hospital sitesin [place], [place], [place] and [place]. This disclosure is being madepursuant to the Care Everywhere program and may not contain all information available regarding this patient. Last updated 18.[facility] Allergies Active Allergy Reactions Criticality Noted Date Comments Cephalosporins Urticaria,Rash Medium 05/12/2018 Penicillins Urticaria,Rash Medium 05/12/2018 Encounters Date Type Department Care Team Description 08/09/2025 9:45 AM CDT - 08/09/2025 11:59 PM CDT Hospital Encounter [facility] [address] [place] [id number] Toño Rivera MD Discharge Disposition: Home or Self Care 07/12/2025 9:45 AM CDT - 07/12/2025 11:59 PM CDT Hospital Encounter [facility] [address] [place] [id number] Toño Rivera MD Discharge Disposition: Home or Self Care 06/14/2025 2:28 PM CDT - 06/14/2025 11:59 PM CDT Hospital Encounter [facility] [address] [place] [phone] Kiran Portillo MD Discharge Disposition: Home or Self Care 05/24/2025 Telephone [facility] [address] [place] [phone] iLssy Santana RN Question (Called and spoke with Yfn at Dr. Cowart's office regarding patient coming into office today to make FU appt for growth as stated on her US report. ) from Last 3 Months Social History Tobacco Use Types Packs/Day Years Used Date Smoking Tobacco: Never Assessed Estimated Date of Delivery Comme nts Yes 08/17/2025 Based on last me nstrual period of 11/10/2024 Sex and Gender Information Value Date Recorded Sex Assigned at Not on file Legal Sex Female 9:49 AM CDT Gender Identity Not on file Sexual Orientation Not on file Last Filed Vital Signs Vital Sign Reading Time Taken Comments Blood Pressure 115/75 08/09/2025 10:16 AM CDT Pulse 74 08/09/2025 10:16 AM CDT Temperature - - Respiratory Rate - - Oxygen Saturation - - Inhaled Oxygen Concentration - - Weight - - Height - - Body Mass Index - - Plan of Treatment Health Maintenance Due Date Last Done Comments LIPID TESTING 1984 MAMMOGRAM 1984 HIV SCREENING 1999 HEPATITIS C SCREENING 06/23/2002 DTAP/TDAP/TD VACCINES (1 - Tdap) 2003 HEPATITIS B VACCINE (1 of 3 - 19+ 3-dose series) 2003 PAP SMEAR 2005 HPV VACCINE (1 - 3-dose SCDM series) 2011 DEPRESSION SCREENING 11/14/2024 OB-ONE HOUR GLUCOSE 05/11/2025 OB-TDAP CURRENT 05/18/2025 04/04/2023, OB-RHOGAM INJECTION 05/25/2025 OB-GROUP B STREP SCREEN 07/13/2025 COVID-19 VACCINE ( season) 2025 09/19/2021, 12/26/2020, 12/10/2020, Additional history exists INFLUENZA VACCINE (#1) 2025 , 08/23/2023, 08/28/2021 ZOSTER VACCINE (1 of 2) 2034 HIB VACCINE Aged Out No longer eligi ble based on patient's age to complete this topic MENINGOCOCCAL (Group B) VACCINE SHARED DECISION-MAKING Aged Out No longer eligible based on patient's age to complete this topic MENINGOCOCCAL GROUPS A/C/Y/W VACCINE Aged Out No longer eligible based on patient's age to complete this topic PNEUMOCOCCAL VACCINE Aged Out No long er eligible based on patient's age to complete this topic Respiratory Syncytial Virus (RSV) Vaccine Pt: or over 60 yrs (No Doses Required) Completed Procedures Procedure Name Priority Date/Time Associated Diagnosis Comments SONOGRAM - COMPLETE Routine 08/09/2025 9 :50 AM CDT Obesity affecting in second trimester, unspecified obesity type (HCC) Hypothyroidism affecting in second trimester (HCC) Multigravida of advanced maternal age in second trimester (HCC) Cystic fibrosis carrier Encounter for ultrasound to assess growth (HCC) 38 weeks gestation of (HCC) SONOGRAM - COMPLETE Routine 07/12/2025 9 :54 AM CDT Obesity affecting in second trimester, unspecified obesity type (HCC) Hypothyroidism affecting in second trimester (HCC) Multigravida of advanced maternal age in second trimester (HCC) Cystic fibrosis carrier Encounter for ultrasound to assess growth (HCC) 34 weeks gestation of (HCC) SONOGRAM - COMPLETE Routine 06/14/2025 2 :29 PM CDT Obesity affecting in second trimester, unspecified obesity type (HCC) Hypothyroidism affecting in second trimester (HCC) Multigravida of advanced maternal age in second trimester (HCC) Cystic fibrosis carrier 29 weeks gestation of (HCC) Encounter for ultrasound to assess growth (HCC) from Last 3 Months Results * Sonogram - Complete (08/09/2025 9:50 AM CDT) Only the most recent of3 resultswithin the time period is included. Linked Results Indication ======== Advanced maternal age (AMA), multigravida Velamentous cord insertion Obesity complicating , Class 3 - BMI of 40.0 or greater Cystic fibrosis gene carrier Hypothyroidism complicating Bipolar disease complicating History ====== OB History 3. Para 1 [id number] 1. miscarriage 2. live 2022. Gest. age 39 w + 0 d. Weight 3,289 g. Sex of child: female. Details: Vaginal delivery Lab Tests Test Date Result NIPT Low risk, Female (per patient report) Maternal Assessment Physical Exam Height 157 cm, 5 ft 2 in. Weight 124 kg, 273 lb. Initial weight 116 kg, 255 lb. BMI 49.93 kg/m . Initial BMI 46.64 kg/m . Weight gain 8 kg, 18 lb Method ====== Transabdominal ultrasound. View: Sufficient ========= Morgan . Number of fetuses: 1 Dating ====== Date Details Gest. age LINDA Stated LINDA 38 w + 6 d 08/17/2025 U/S 08/09/2025 based upon AC, BPD, Femur, HC 37 w + 6 d 08/24/2025 Assigned dating based on stated LINDA, selected on 04/05/2025 38 w + 6 d 08/17/2025 General Evaluation Cardiac activity present. FHR 145 bpm. Presentation: cephalic Placenta: Placental site: anterior Amniotic fluid: Amount of AF: normal. RASHID 9.8 cm. Q1 3.1 cm, Q2 2.4 cm, Q3 2.1 cm, Q4 2.2 cm Biometry BPD 91.8 mm 37w 2d 38% Hadlock HC 327.0 mm 37w 1d 7% Hadlock AC 353.3 mm 39w 2d 80% Hadlock Femur 73.4 mm 37w 4d 24% Hadlock Humerus 61.9 mm 35w 6d 12% Roly HC / AC 0.93 Weight Calculation: EFW 3,449 g 54% Hadlock EFW (lb,oz) 7 lb 10 oz EFW by Hadlock (HC-AC-FL) Growth Overview Exam date GA BPD (mm) HC (mm) AC (mm) FL (mm) HL (mm) EFW (g) 04/05/2025 20w 6d 49.4 53% 178.8 19% 171.3 81% 37.2 75% 33.7 68% 450 88% 05/06/2025 25w 2d 64.6 70% 231.5 24% 211.7 54% 47.2 51% 42.8 54% 840 57% 06/14/2025 30w 6d 80 77% 282.3 17% 285.5 89% 59.6 41% 54.8 80% 1864 73% 07/12/2025 34w 6d 86 46% 310 13% 325.9 92% 65.8 19% 61.1 82% 2679 63% 08/09/2025 38w 6d 91.8 38% 327 7% 353.3 80% 73.4 24% 61.9 12% 3449 54% Anatomy The following structures appear normal: Abdomen Stomach. Bladder. sex: female. Biophysical Profile 2: breathing movements 2: Gross body movements 2: tone 2: Amniotic fluid volume NST: reactive 10/10 Biophysical profile score Non Stress Test NST interpretation: reactive. Baseline FHR 120 bpm. Baseline variability: moderate. Decelerations: absent Impression ========= 1) Morgan gestation, 38w6d 2) The accuracy of weight estimates is highly limited at term and at a higher BMI but there is no evidence of abnormal growth based on today's biometry overall 3) The amniotic fluid volume is within normal limits 4) Reassuring biophysical profile Comment ======== ultrasound alone cannot detect all structural, genetic, or functional , placental, or maternal abnormalities Follow-up ======== Close maternal movement monitoring while awaiting admission for delivery Coding ====== Diagnoses O43.123: Velamentous insertion of umbilical cord O99.213, E66.813: Obesity complicating , Class 3 - BMI of 40.0 or greater Z14.1: Cystic fibrosis carrier O99.283, E03.9: Other endocrine, nutritional and metabolic diseases complicating , Hypothyroidism O43.123: Velamentous insertion of umbilical cord O09.523: Supervision of elderly multigravida Z36.89: Encounter for other specified screening Procedures 98591: [place] [address]: Biophysical Profile W NST [place] [facility] Anatomical Region Laterality Modality Other 08/09/2025 9:50 AM CDT Pa Cowart MD [facility] ORDERABLES Edited Result - Final from Last 3 Months Insurance [facility]
--- OUTSIDE RECORDS SUMMARY | 2025-08-16 19:44 | XMS_ITS | Patient Health Record ---
Author Organization [facility] Address [address] [place] [address] Care Team Providers Care Pamphlet Distributor Name Role Phone Regulo Vizcaino Unavailable [phone] Reason For Referral No Information Medications Medication SIG (Take, Route, Frequency, Duration) Notes Start Date End Date Status Sertraline HCl 50 MG Tablet Oral 10/27/2019 Active Vraylar 1.5 mg Capsule Oral 10/27/2019 Active Immunizations Vaccine Route Administration Date Status Comme nts Influenza virus vaccine, quadrivalent (IIV4), split virus, 0.25 mL dosage Unknown 09/13/2019 Administered Influenza, injectable, MDCK, preservative free Unknown 09/13/2019 Administered Influenza, quadrivalent, split virus Unknown 09/13/2019 Administered Source VFC Code: V00 - VFC eligibility not determined/unknown Tdap Unknown 11/14/2017 Administered Social History Social History Additional Details Category Social Info Options Details Migrated Social History Migrated Social History Alcohol Intake: Occasional 09/16/2020,Tobacco Years: Never smoker 09/16/2020,Smoking Status: 0 09/16/2020 Plan Of Treatment No Information Insurance Providers Payer Name Payer Address Payer Phone Subscriber Number Group Number Insured Name Patient Relationship to Insured Coverage Start Date Coverage End Date [facility] [facility] Benefits Plan - Dos Prior To [address] [place] [address] [id number] HAILEY BELLA Self - patient is the insured Medical (General) History Surgical History Surgery Date(Month/Year) Remove tonsils and adenoids (59018) 11/1989
[2025-08-16 20:13] LABS: Hematocrit 35.9 % (37.0-47.0); Hemoglobin 12.3 g/dL (12.0-15.0); Immature Granulocyte Percent A 0.5 % (0-0.5); Lymphocytes Absolute Auto 1.50 K/mm3 (0.9-3.2); Mean Corpuscular HGB Conc 34.3 g/dl (32-36); Mean Corpuscular Hemoglobin 30.4 pg (26-34); Mean Corpuscular Volume 88.9 fl (80-100); Nucleated Red Blood Cells Absolute Auto 0.000 K/mm3 (0.0-0.012); Nucleated Red Blood Cells Perc 0.0 % (0.0-0.2); Platelet Count Result 250 k/mm3 (150-375); Red Blood Count 4.04 M/mm3 (4.2-5.4); White Blood Count 10.7 K/mm3 (4.5-10.0)
[2025-08-16] MEDS: DINOPROSTONE 10 MG VAG INSERT VAGINAL (20:33)
[2025-08-16 20:51] LABS: Syphilis IgG/IgM Antibody Non-Reactive (Nonreactive)
--- NOTE | 2025-08-16 20:52 | PM.IMHP ---
H&P: HPI History of Present Illness Date/Time: 08/16/25 20:52 Chief Complaint: medical induction of labor Narrative: Sarita is a 40yo @ 39.6wks who presents for medical IOL. She has had regular care and co-management with [facility]. She recently had NST/BPP/growth that was all normal with MFM. She denies VB or LOF. Her is complicated by: - IUI , letrozole and Ovidrel shot - AMA- low does ASA, NIPT testing - hypothyroid- levothyroxine, will check Q trimester - obesity- BMI 46, early GCT, MFM for scans - bipolar- no meds - CF carrier- negative Review of Systems Constitutional: Constitutional: Denies chills, Denies fever(s) and Denies headache(s) Eyes: Eyes: Denies change in vision ENT: Denies headache(s) Cardiovascular: Cardiovascular: Denies chest pain and Denies dyspnea Respiratory: Respiratory: Denies dyspnea Genitourinary: Genitourinary: Denies abnormal vaginal bleeding and Denies vaginal discharge Neurologic: Denies headache(s) Psychiatric: Psychiatric: Denies anxiety and Denies depression [facility] Past Medical History Medical History and not yet delivered Morbid obesity History of miscarriage x 1 Bipolar disorder Migraine Hypothyroidism Acid reflux Surgical History Surgical History History of tonsillectomy and adenoidectomy Family History Family History Father Diabetes mellitus Acute myocardial infarction Hypertension Hyperlipidemia Mother Uterine prolapse Social History Social History Smoking status: Never smoker Second hand tobacco smoke exposure: No Alcohol intake: former Substance use: never Do You Feel Safe in your Home?: Yes Lack of Transportation: No Lack of Food: Never True Current Housing: I Have Housing Concerned About Future Housing: No Difficulty Paying Gas/Electric Bills: No Difficulty Paying for Meds: No Currently Unemployed: No Education: Master's Degree or Higher Difficulty w/ Childcare or Family Care: No Living arrangements: with family Occupation/Education: occupation Gender identity (if verbalized by the patient): Female Spiritual care concerns: No Meds Home Medications and Allergies Home Medications ?Medication ?Instructions ?Recorded ?Confirmed ?Type levothyroxine 50 mcg tablet 75 mcg PO DAILY 10/07/20 08/15/25 History vitamin B complex (B 1 tablet PO DAILY 08/20/21 08/15/25 History Complex-Vitamin B12 tablet) vits no.126-ferrous fum tablet PO 01/10/25 08/15/25 History 28 mg iron-folic acid 800 mcg tablet (Classic ) cholecalciferol (vitamin D3) 125 50 mcg PO DAILY 01/11/25 08/15/25 History mcg (5,000 unit) capsule aspirin 81 mg tablet,delayed 162 mg PO DAILY 02/07/25 08/15/25 History release famotidine 20 mg tablet (Pepcid) 20 mg PO DAILY 07/02/25 08/15/25 History Allergies Allergy/AdvReac Type Severity Reaction Status Date / Time Cephalosporins Allergy Intermediate RASH Verified 08/08/25 16:04 Penicillins Allergy Intermediate RASH Verified 08/08/25 16:04 adhesive tape AdvReac Redness of Verified 08/08/25 16:04 Skin Vital Signs Vital Signs - 24 hr 08/16/25 04:00 08/16/25 20:15 08/16/25 20:45 Pulse Rate 88 83 Blood Pressure 131/88 138/72 Oxygen Delivery Room Air Exam Const: General: cooperative, no acute distress and obese Nutritional Appearance: obese Orientation/consciousness: patient oriented x3 Resp: Effort & Inspection: normal respiratory effort Cardio: Rate: regular rate GI: GI Palp: No abdominal tenderness : Other: FHT's: 150's/ mod emily/ + accels/ no decels - cat 1 TOCO: irregular ctxs Cervix: 1.5/50/-2 Membranes: intact Presentation: cephalic Skin: General skin exam: normal color Neuro: General: patient oriented x3 Extrem: General: normal to inspection Psych: Appearance: grossly normal Affect: normal affect Attitude: cooperative H&P: Results Labs Labs: Short CBC 08/16/25 Range/Units 20:07 WBC 10.7 H (4.5-10.0) K/mm3 Hgb 12.3 (12.0-15.0) g/dL Hct 35.9 L (37.0-47.0) % Plt Count 250 (150-375) k/mm3 Assessment and Plan Assessment and plan (1) Encounter for induction of labor: Code(s): Z34.90 - Encounter for supervision of normal , unspecified, unspecified trimester Status: Acute (2) AMA (advanced maternal age) multigravida 35+: Code(s): O09.529 - Supervision of elderly multigravida, unspecified trimester Status: Acute Plan - Admitted overnight for induction of labor; risks and benefits discussed - Cervidil tonight - Ok for intermittent monitoring if category 1 tracing - GBS neg - Anesthesia consult PRN pain
--- NOTE | 2025-08-16 21:21 | WPDANESEPP ---
Anes - Eval Pre Procedure Procedure: Labor epidural Date/Time: 08/16/25 21:21 Surgeon: Cuong Preop Diagnosis: Abdominal pain with contractions Pre Op Diagnosis: IOL Patient Data Age: 40 Gender: F Height: 1.57 m Weight: 124.54 kg Last Vital Signs Pulse 80 08/16/25 21:15 BP 139/84 08/16/25 21:15 O2 Del Method Room Air 08/16/25 04:00 Allergies Allergy/AdvReac Type Severity Reaction Status Date / Time Cephalosporins Allergy Intermediate RASH Verified 08/08/25 16:04 Penicillins Allergy Intermediate RASH Verified 08/08/25 16:04 adhesive tape AdvReac Redness of Verified 08/08/25 16:04 Skin Home Medications ?Medication ?Instructions ?Recorded ?Confirmed ?Type levothyroxine 50 mcg tablet 75 mcg PO DAILY 10/07/20 08/15/25 History vitamin B complex (B 1 tablet PO DAILY 08/20/21 08/15/25 History Complex-Vitamin B12 tablet) vits no.126-ferrous fum tablet PO 01/10/25 08/15/25 History 28 mg iron-folic acid 800 mcg tablet (Classic ) cholecalciferol (vitamin D3) 125 50 mcg PO DAILY 01/11/25 08/15/25 History mcg (5,000 unit) capsule aspirin 81 mg tablet,delayed 162 mg PO DAILY 02/07/25 08/15/25 History release famotidine 20 mg tablet (Pepcid) 20 mg PO DAILY 07/02/25 08/15/25 History Laboratory Tests 08/16/25 20:07 WBC 10.7 H K/mm3 (4.5-10.0) RBC 4.04 L M/mm3 (4.2-5.4) Hgb 12.3 g/dL (12.0-15.0) Hct 35.9 L % (37.0-47.0) MCV 88.9 fl (80-100) MCH 30.4 pg (26-34) MCHC 34.3 g/dl (32-36) RDW 13.2 % (11.5-14.5) Plt Count 250 k/mm3 (150-375) MPV 10.1 fl (7.4-10.4) Immature Gran % (Auto) 0.5 % (0-0.5) Neut % (Auto) 79.8 H % (45.5-73.1) Lymph % (Auto) 14.0 L % (18.3-44.2) [place] % (Auto) 4.5 % (2.6-8.5) Eos % (Auto) 0.9 % (0-4.4) Baso % (Auto) 0.3 % (0.2-1.2) Lymph # (Auto) 1.50 K/mm3 (0.9-3.2) [place] # (Auto) 0.5 K/mm3 (0.1-0.6) Eos # (Auto) 0.1 K/mm3 (0-0.3) Baso # (Auto) 0.0 K/mm3 (0.0-0.1) Abs Immat Gran (auto) 0.05 H K/mm3 (0.00-0.031) Absolute Neuts (auto) 8.6 H K/mm3 (1.3-6.7) Absolute Nucleated RBC 0.000 K/mm3 (0.0-0.012) Nucleated RBC % 0.0 % (0.0-0.2) Syphilis IgG/IgM Ab Non-reactive (Nonreactive) Blood Type O Positive Antibody Screen Negative : gestational age HCG: positive Patient hx anesthesia problems: none Family hx anesthesia problems: none Results Review: All pre-operative results and documents have been reviewed as part of the pre-operative evaluation. [facility] Past Medical History Medical History and not yet delivered Morbid obesity History of miscarriage x 1 Bipolar disorder Migraine Hypothyroidism Acid reflux Surgical History Surgical History History of tonsillectomy and adenoidectomy Family History Family History Father Diabetes mellitus Acute myocardial infarction Hypertension Hyperlipidemia Mother Uterine prolapse Social History Social History Smoking status: Never smoker Second hand tobacco smoke exposure: No Alcohol intake: former Substance use: never Do You Feel Safe in your Home?: Yes Lack of Transportation: No Lack of Food: Never True Current Housing: I Have Housing Concerned About Future Housing: No Difficulty Paying Gas/Electric Bills: No Difficulty Paying for Meds: No Currently Unemployed: No Education: Master's Degree or Higher Difficulty w/ Childcare or Family Care: No Living arrangements: with family Occupation/Education: occupation Gender identity (if verbalized by the patient): Female Spiritual care concerns: No Exam Day of Procedure 08/16/25 21:21 Patient weight: super morbidly obese Heart: regular rate and rhythm
[2025-08-17] VITALS (112 sets, daily range): BP systolic 80–158; BP diastolic 47–123; PULSE 52–281; RESP 16–18; TEMP 36.6–37.2; O2SAT 78–100
[2025-08-17] MEDS: OXYTOCIN 30 UNITS/NS 500 ML 30 UNITS/500 ML BAG IV CONT (02:47)
[2025-08-17] MEDS: LACTATED RINGERS 1,000 ML 125 ML IV CONT (02:47)
[2025-08-17] MEDS: LEVOTHYROXINE SODIUM 75 MCG TABLET PO (06:16)
[2025-08-17] MEDS: SODIUM CHLORIDE 0.9% IV 300 ML 600 ML I-UTERINE (06:25)
[2025-08-17] MEDS: LACTATED RINGERS 1,000 ML 999 ML IV CONT (06:33)
--- NOTE | 2025-08-17 09:05 | S_PTH ---
PATIENT: Sarita Arambula LOC: ANHOB2 U#:[id number] AGE/SX: 40/F ROOM: 283 RE08/16/[address]: Elizabeth Hutchins MD : [id number] BED: 00 DIS: 08/18/2025 SPEC #: [id number] RECD: 08/19/25 08:35 STATUS: MY RERohini #: [id number] BARBARA: 08/17/25 09:[address]: Elizabeth Hutchins DEPT: [facility] Surgical RECD BY: Halima Amaya ENTERED: 08/19/25 08:36 SP TYPE: Surgical OTHR DR: UNKNOWN,DOCTOR Tissues: A - Placenta Procedures: Hematoxylin and Eosin Stain Gross and Microscopic Level 5
--- NOTE | 2025-08-17 09:17 | PM.OBPRVD ---
OB - Vaginal Delivery Note Procedure Delivery date: 08/17/25 Events: Other (AMA) Induction method: Per Cervidil Protocol Delivery augmentation: Pitocin Delivery monitor: External FHT and Internal Uterine Route of delivery: Laceration Description: Perineal - 1st Degree Delivery repair: vicryl Specimen: Yes (placenta (velamentous cord)) Quantitative Blood Loss (ml): 350 Anesthesia type: Epidural Disposition: Floor Complications: No immediate complications [place] Baby Date of : 08/17/25 Time of : 09:00 Gestational Age by Date: 40 (.0) Infant gender: Female Weight (pounds): 7 Weight (ounces): 3 presentation: vertex position: Left Occiput Anterior Placenta delivery description: Expressed Cord Vessel Description: 3 Vessels, Nuchal Cord, Reduced and Delayed Cord Clamping score one minute: 8 score five minutes: 9 Narrative: Sarita presented for induction of labor and and received Cervidil overnight. She had spontaneous rupture of membranes, clear at 0140. The Cervidil was removed and she was started on Pitocin augmentation and progressed to 5 cm, then rapidly to complete dilation. She did have some heart decelerations but they resolved with amnioinfusion and position changes. She had strong desire to push and with 1 contraction delivered the head over intact perineum. Nuchal cord was noted but loose and easily reduced. She easily delivered the 's shoulders and body without complication. The infant was immediately placed skin to skin and had spontaneous cry. Delayed cord clamping was performed. The umbilical cord was then doubly clamped and cut by dad. A segment of the cord was collected for cord gases. The remaining cord blood was collected for typing. With Pitocin running and gentle downward traction on the cord, the placenta delivered without complication. The placenta was examined and velamentous cord insertion was then noted. She was examined and a small first-degree perineal laceration was identified at the site of her prior laceration scar.. The laceration was repaired in the normal fashion using 2-0 Vicryl with good reapproximation and minimal bleeding. Bimanual massage was performed and good uterine tone with minimal bleeding was noted. Sponge, lap, instrument, and needle counts were correct at the end of the procedure. Mom and baby were left bonding in the birthing suite in stable condition.
[2025-08-17] MEDS: OXYTOCIN 30 UNITS/NS 500 ML 30 UNITS/500 ML BAG 125 UNITS IV CONT (09:33)
--- NOTE | 2025-08-17 12:00 | OBPPTRN ---
Patient transferred to post room #283 via wheelchair. Support person- spouse Alejandro present. Oriented to unit, room, information board, rooming in, admission packet and security measures. Patient verbalizes understanding.
--- NOTE | 2025-08-17 12:30 | PC.NURSE ---
Patient called out for assistance. Baby is eager and trying to latch but unable to maintain a seal on the breast. Mom has everted nipples that are think and large, soft breasts. A 'bite' can be made for baby to get a deeper latch on. Baby tends to cry and release the breast after a few sucks. We tried in cross cradle on the left breast first and then moved to football on the right breast. Baby latches well in football and is able to maintain suction. Mom is able to latch independently. Baby does need some encouragement to continue suckling. Swallows noted. Mom felt baby was 'chewing' so we latched again and it felt better. Mom is able to express drops of colostrum. She has a history of low milk supply with her last baby and she brought her pump in case she needs it. She opted to give some formula supplementation after the initial . Mom educated to allow baby to eat as long as desired and to call if she needs any help switching breasts. Primary RN updated.
[2025-08-17] MEDS: ACETAMINOPHEN 325 MG TABLET 650 MG PO ×2 (12:31→19:01)
[2025-08-17] MEDS: IBUPROFEN 600 MG TABLET PO (18:10)
[2025-08-18] MEDS: IBUPROFEN 600 MG TABLET PO ×3 (01:52→13:26)
[2025-08-18] MEDS: ACETAMINOPHEN 325 MG TABLET 650 MG PO ×3 (01:52→13:26)
[2025-08-18 05:42] LABS: Hematocrit 34.4 % (37.0-47.0); Hemoglobin 11.3 g/dL (12.0-15.0); Mean Corpuscular HGB Conc 32.8 g/dl (32-36); Mean Corpuscular Hemoglobin 30.4 pg (26-34); Mean Corpuscular Volume 92.5 fl (80-100); Platelet Count Result 203 k/mm3 (150-375); Red Blood Count 3.72 M/mm3 (4.2-5.4); White Blood Count 9.7 K/mm3 (4.5-10.0)
[2025-08-18] MEDS: LEVOTHYROXINE SODIUM 75 MCG TABLET PO (07:13)
[2025-08-18 08:00] VITALS: BP 133/82; PULSE 100; RESP 14; TEMP 36.6; O2SAT 99
--- NOTE | 2025-08-18 08:50 | PM.OBPNVD ---
OB - PN: Subj Subjective Date/time seen: 08/18/25 08:50 Narrative: PPD#1 Sarita reports doing well today. 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 Her pain is controlled. She is tolerating regular diet, voiding, passing gas, and ambulating without issues. She is breast feeding. She would like to go home today. OB - PN: Obj Data Labs 08/18/25 05:16 Labs: Laboratory Results - last 24 hr 08/16/25 20:07 WBC 10.7 H RBC 4.04 L Hgb 12.3 Hct 35.9 L MCV 88.9 MCH 30.4 MCHC 34.3 RDW 13.2 Plt Count 250 MPV 10.1 Immature Gran % (Auto) 0.5 Neut % (Auto) 79.8 H Lymph % (Auto) 14.0 L [place] % (Auto) 4.5 Eos % (Auto) 0.9 Baso % (Auto) 0.3 Lymph # (Auto) 1.50 [place] # (Auto) 0.5 Eos # (Auto) 0.1 Baso # (Auto) 0.0 Abs Immat Gran (auto) 0.05 H Absolute Neuts (auto) 8.6 H Absolute Nucleated RBC 0.000 Nucleated RBC % 0.0 Syphilis IgG/IgM Ab Non-reactive Blood Type O Positive Antibody Screen Negative OB - PN A/P Assessment and Plan (1) Normal vaginal delivery of second : Code(s): O80 - Encounter for full-term uncomplicated delivery Status: Acute Plan day: 1 Plan: routine care Comments: - PO pain meds - Regular diet - Ambulation and hydration encouraged - Continue putting baby to breast q2-3hr Time Spent With Patient Time: Total time spent is greater than 50% in coordination of care (as documented) at patient's floor/unit and/or counseling patient: Review of Systems Constitutional: Constitutional: Denies chills, Denies fever(s) and Denies headache(s) Eyes: Eyes: Denies change in vision ENT: Denies dizziness and Denies headache(s) Cardiovascular: Cardiovascular: Denies chest pain, Denies palpitations and Denies dyspnea Respiratory: Respiratory: Denies cough and Denies dyspnea Gastrointestinal: Gastrointestinal: Denies nausea and Denies vomiting Neurologic: Denies dizziness and Denies headache(s) Endocrine: Endocrine: Denies palpitations Exam Const: General: cooperative, comfortable and no acute distress Orientation/consciousness: patient oriented x3 Resp: Effort & Inspection: normal respiratory effort Auscultation: clear to auscultation bilaterally Cardio: Rate: regular rate GI: Inspection: non-distended GI Palp: No abdominal tenderness and Yes Soft to palpation Auscultation: normal bowel sounds : Other: fundus firm Skin: General skin exam: normal color Neuro: General: patient oriented x3 Extrem: General: normal to inspection Psych: Appearance: grossly normal Affect: normal affect Attitude: cooperative
--- NOTE | 2025-08-18 09:46 | P.DS_ITS ---
DS: Admitting Diagnosis Discharge Date 08/18/25 Admitting Diagnosis Induction of labor AMA DS: Discharge Diagnosis Discharge Diagnosis (1) Normal vaginal delivery of second : Code(s): O80 - Encounter for full-term uncomplicated delivery Status: Acute OB - DS: Summary OB Procedures : NST and Ultrasound OB Procedures Intrapartum: Spontaneous Vag Delivery OB Procedures: : None Peripartum Data Infant Delivery Method: Natural Vaginal Laceration Description: Perineal - 1st Degree Episiotomy description: None complications: none 1: Gender: Female Disposition of : home Status at Discharge Functional status at discharge: independent ambulation Overall status at discharge: patient is back to baseline Time Spent with Patient Time attestation: Total time spent providing and/or coordinating discharge services: Exam Const: General: cooperative, comfortable and no acute distress Orientation/consciousness: patient oriented x3 Resp: Effort & Inspection: normal respiratory effort Auscultation: clear to auscultation bilaterally Cardio: Rate: regular rate GI: Inspection: non-distended GI Palp: No abdominal tenderness and Yes Soft to palpation Auscultation: normal bowel sounds : Other: fundus firm Skin: General skin exam: normal color Neuro: General: patient oriented x3 Extrem: General: normal to inspection Psych: Appearance: grossly normal Affect: normal affect Attitude: cooperative DS: Data Data Completed and Pending Pending studies at discharge: Pending at discharge 08/17/25 09:05 Surgical [PTH] Routine Labs on day of discharge: Labs from last 24 hours 08/18/25 05:16 WBC 9.7 RBC 3.72 L Hgb 11.3 L Hct 34.4 L MCV 92.5 MCH 30.4 MCHC 32.8 RDW 13.4 Plt Count 203 MPV 10.0 Discharge Plan Discharge Attending physician on discharge: Elizabeth Hutchins Discharging Clinician: Elizabeth Hutchins Patient Disposition: Home Activity: may shower and pelvic rest Diet: regular Patient Instructions: Antibiotic Form Patient Language: Upper Sorbian Stand Alone Forms: General Discharge Information Follow-up/Referrals: Elizabeth Hutchins MD [Physician, PEDIATRIC MEDICAL ASSISTANT] - 4 Weeks Discharge Medications: New acetaminophen 500 mg tablet 1,000 mg PO TID Qty: 60 0RF docusate sodium [Colace] 100 mg capsule 100 mg PO BID Qty: 90 0RF ibuprofen 800 mg tablet 800 mg PO TID Qty: 30 0RF Continued levothyroxine 50 mcg tablet 75 mcg PO DAILY cholecalciferol (vitamin D3) 125 mcg (5,000 unit) capsule 50 mcg PO DAILY vitamin B complex [B Complex-Vitamin B12] Tablet 1 tablet PO DAILY Classic 28 mg iron- 800 mcg tablet PO aspirin 81 mg tablet,delayed release (DR/EC) 162 mg PO DAILY famotidine [Pepcid] 20 mg tablet 20 mg PO DAILY Date of admission: 08/16/25 19:38 Primary Care Provider: UNKNOWN,DOCTOR Admitting Provider: Elizabeth Hutchins Attending physician on admission: Elizabeth Hutchins Condition: Stable
[2025-08-19 08:18] VITALS: BP 123/72; PULSE 86; RESP 18; TEMP 36.7; O2SAT 100
== END 2025-08-18 13:30 | disposition home or self-care (01) | DRG 807 ==
LOC: ANHLDR 08-17 09:44 → ANHOB2 08-17 12:01
PROVIDERS: Admitting Provider Obstetrics & Gynecology; Visit Provider Obstetrics & Gynecology
DX: O99.284 Endocrine, nutritional and metabolic diseases complicating childbirth (principal); Z37.0 Single live birth; Z3A.40 40 weeks gestation of pregnancy; E03.9 Hypothyroidism, unspecified; O69.81X0 Labor and delivery complicated by cord around neck, without compression, not applicable or unspecified; O43.123 Velamentous insertion of umbilical cord, third trimester; O70.0 First degree perineal laceration during delivery; E66.01 Morbid (severe) obesity due to excess calories; O99.214 Obesity complicating childbirth
CPT/HCPCS: 36415; 85025; 85027; 86593; 86850; 86900; 86901; 88307; A9270; J2590; J2795; J7030; J7120